=== PATIENT | male | born 1945 | race Caucasian/White ===

== ENCOUNTER 2016-12-29 07:53 | Outpatient (CLI) | payer MEDICARE, OTHER ==
[~2016-12-29] VITALS: Ht 182.9 cm; Wt 109.0 kg
[2016-12-29] MEDS ORDERED: LIPITOR 40MG TA40 MG PO (08:19)
[2016-12-29] MEDS ORDERED: CALCIUM 600-D 61 TAB PO (08:20)
[2016-12-29] MEDS ORDERED: MULTI VITAMINS1 TAB PO (08:20)
[2016-12-29] MEDS ORDERED: MAGNESIUM250 M1 PO (08:21)
[2016-12-29] MEDS ORDERED: VITAMIN C500 MG PO (08:21)
[2016-12-29] MEDS ORDERED: FISH OIL1000 MG PO (08:22)
[2016-12-29] MEDS ORDERED: ASPIRIN E.C. 8181 MG PO (08:23)
[2016-12-29 08:24] VITALS: BP 123/81; PULSE 57; TEMP 97.6
[2016-12-29] MEDS ORDERED: CEPHALEXIN500 M1 PO (09:28)
[2016-12-29 09:39] VITALS: BP 151/87; PULSE 60; TEMP 98.3
== END 2016-12-29 09:44 | disposition home or self-care (01) ==
LOC: COL.RAD 07:53
DX: I44.1 Atrioventricular block, second degree (principal); E78.5 Hyperlipidemia, unspecified; Z79.899 Other long term (current) drug therapy
CPT/HCPCS: C1764

== ENCOUNTER 2017-01-27 11:27 | Day surgery (SDC) | payer MEDICARE, OTHER ==
[~2017-01-27] VITALS: Ht 182.9 cm; Wt 113.6 kg
[2017-01-27] VITALS (11 sets, daily range): BP systolic 120–196; BP diastolic 53–98; PULSE 60–74; TEMP 97.7–99.1
[~2017-01-27 11:27] MED LIST: ASPIRIN E.C. 8181 MG PO; CALCIUM 600-D 61 TAB PO; CEPHALEXIN500 M1 PO; FISH OIL1000 MG PO; LIPITOR 40MG TA40 MG PO; MAGNESIUM250 M1 PO; MULTI VITAMINS1 TAB PO; VITAMIN C500 MG PO
[2017-01-27 12:40] LABS: HEMATOCRIT 44.6 % (42.0-52.0); HEMOGLOBIN 15.1 g/dl (13.5-18.0); MEAN CELL VOLUME 89 fl (80.0-100.0); MEAN CORPUSCULAR HEMOGLOBIN 30 pg (27.0-31.0); MEAN CORPUSCULAR HGB CONC 34 g/dl (33.0-37.0); MEAN PLATELET VOLUME 10.2 fl (7.4-10.4); PLATELET COUNT 183 K/mm3 (130-400); RED BLOOD COUNT 5.02 M/mm3 (4.20-5.60); REDCELL DISTRIBUTION WIDTH-CV 12.6 % (11.5-14.5); WHITE BLOOD COUNT 7.8 K/mm3 (4.8-10.8)
[2017-01-27 12:43] LABS: PROTHROMBIN TIME 11.4 SECONDS (9.7-12.8)
[2017-01-27 12:47] LABS: CALCIUM 9.1 mg/dL (8.4-10.2); CREATININE, serum 0.99 mg/dL (0.66-1.25); POTASSIUM 4.1 mmol/L (3.4-5.0)
[2017-01-28 04:07] VITALS: BP 130/75; PULSE 65; TEMP 98.6
[2017-01-28 08:15] VITALS: BP 124/72; PULSE 70; TEMP 98
[2017-01-28] MEDS ORDERED: CEPHALEXIN500 M1 PO (11:15)
== END 2017-01-28 12:03 | disposition home or self-care (01) ==
LOC: COL.CAR 11:27 → MEDICAL 17:07 → COL.CAR 01-28 12:03
PROVIDERS: Internal Medicine Cardiovascular Disease
DX: I44.1 Atrioventricular block, second degree (principal); R00.1 Bradycardia, unspecified; E78.5 Hyperlipidemia, unspecified
CPT/HCPCS: OP; C1769; C1785; C1894; C1898; J0690; J2250; J3010; J7030; Q9967